=== PATIENT | male | born 1950 | race Caucasian/White ===

== ENCOUNTER 2016-12-21 07:37 | Emergency (ER) | payer OTHER ==
[~2016-12-21] VITALS: Ht 172.7 cm; Wt 96.0 kg
[2016-12-21 07:39] VITALS: Ht 172.7 cm; Wt 96.0 kg
--- NOTE | 2016-12-21 08:17 | ERA ---
ER Documentation Chief Complaint Date/Time DATE: 12/21/16 TIME: 08:09 Chief Complaint 9/10 lower back pain x 3 days HPI 66-year-old male with a chief complaint of worsening back pain 3 days. Patient states that he has chronic back pain, but his PCP is on vacation. Patient has a significant past medical history including a chronic history of difficulty urinating. Patient describes the back pain as sharp and extending to bilateral outer upper thighs. No pain below the knees. States that is more difficult to ambulate secondary to pain. Denies mechanism of injury, history of cancer, recent illness, unexplained weight loss, thoracic back pain, pain at rest, saddle parasthesia, incontinence, or pain exacerbated by valsalva, fever, or chills. Patient has no other complaints and describes no other associated manifestations. ROS All systems reviewed and are negative except as per history of present illness. Medications Home Meds Active Scripts Ibuprofen* (Motrin*) 400 Mg Tab, 400 MG PO Q6, #30 TAB Prov:SAMANTHA LYONS PA-C 12/21/16 Allergies Allergies: Coded Allergies: No Known Allergy (Unverified , 12/21/16) PMhx/Soc History of Surgery: Yes (spinal surgery) Anesthesia Reaction: No Hx Neurological Disorder: No Hx Respiratory Disorders: No Hx Cardiac Disorders: Yes (htn, high cholesterol) Hx Psychiatric Problems: No Hx Miscellaneous Medical Probl: Yes (dm,+hiv) Hx Alcohol Use: No Hx Substance Use: No Hx Tobacco Use: No Smoking Status: Never smoker Physical Exam Vitals Vital Signs Date Time Temp Pulse Resp B/P Pulse Ox O2 Delivery O2 Flow Rate FiO2 12/21/16 07:39 98.0 77 18 159/78 98 Physical Exam Const: Morbidly obese 66-year-old male in a wheelchair on presentation. No acute distress. Head: Atraumatic Eyes: Normal Conjunctiva. No nystagmus. EOMI bilaterally. PERRLA. ENT: Normal External Ears, Nose and Mouth. Neck: Full range of motion. Nontender.~ No meningismus. Resp: Clear to auscultation bilaterally Cardio: Regular rate and rhythm, no murmurs. Posterior tibial, dorsalis pedis and radial pulses 2+ bilaterally. Cap refill less than 2 seconds. Abd: Soft, non tender, non distended. Normal bowel sounds Skin: No petechiae or rashes Back: No midline or flank tenderness. Limited range of motion secondary to pain. Anal wink and rectal tone intact. Ext: No cyanosis, or edema. No paresthesia. Neur: Awake and alert. Altered ambulation secondary to pain. Neurovascularly intact bilaterally. Psych: Normal Mood and Affect Results 24 hrs Current Medications Medications (Trade) Dose Ordered Sig/Rashida Route PRN Reason Start Time Stop Time Status Last Admin Dose Admin Acetaminophen/ Hydrocodone Bitart (Reva (5/325)) 1 tab ONCE ONCE PO 12/21/16 08:30 12/21/16 09:04 DC 12/21/16 08:55 Ketorolac Tromethamine (Toradol) 15 mg ONCE STAT IM 12/21/16 09:03 12/21/16 09:04 DC 12/21/16 09:08 Procedures/MDM 66-year-old male presenting with back pain as described in history and physical examination. Physical examination was largely unremarkable. X-ray was obtained due to patient's age. X-ray was read by the radiologist given the following impression: 1. Grade 1 anterolisthesis of L4 on L5. 2. Posterior instrumented fusion of L5-S1 without evidence of hardware complication. Patient was given 5/325 Reva p.o for pain in the ED with adequate relief. Most likely diagnosis is back pain with sciatica along with radiographic findings. At this time I do not suspect cauda equina syndrome, spinal cord compression, aortic aneurysm, aortic dissection, epidural abscess, spinal hematoma, malignancy, kidney stones or pyelonephritis. Treatment will include ibuprofen outpatient instructions to follow-up with PCP for possible referral to a specialist. The results of the x-ray have been handed to the patient. I have spoke with the patient regarding their condition and future management. They have verbally responded that they understand their status and treatment plan. The patients vitals are stable, and their current condition is appropriate for discharge. The patient will be given discharge instructions with return precautions. Departure Diagnosis: Primary Impression: Back pain Qualified Code: M54.42 - Chronic bilateral low back pain with bilateral sciatica Additional Impression: Anterolisthesis Condition: Stable Additional Instructions: Follow up with your PCP within the next 1-3 days for a more thorough evaluation and a possible referral to a specialist. Return the the emergency department immediately if symptoms worsen or change. If you have any questions regarding medications, ask your pharmacist or us before you leave. If any adverse reactions occur while taking your medications, discontinue the treatment and return to the emergency department immediately. Take your medications as directed, and complete the entire course of treatment. SAMANTHA LYONS PA-C Dec 21, 2016 08:17
[2016-12-21] MEDS ORDERED: HYDROCODONE/APAP (5/325) TAB PO ONE (08:30)
[2016-12-21] MEDS ORDERED: KETOROLAC 15 MG INJ IM STA (09:03)
--- NOTE | 2016-12-21 09:12 | RADRPT ---
PROCEDURE: Lumbar spine radiograph. CLINICAL INDICATION: Chronic pain. COMPARISON: None relevant listed. TECHNIQUE: AP, lateral, and coned-down L5-S1 views. FINDINGS: Slight 1-2 mm anterolisthesis of L4 on L5. The usual lumbar lordosis is straightened. There are 5 non-rib bearing lumbar vertebral bodies. L5-S1 posterior instrumented fusion using rods and bilateral pedicle screws with intervening disc sp acer. No hardware fracture. No suspicious nichole-hardware lucency. No acute fracture. Vertebral body height is maintained. No suspicious bony lesion. Disc dessication and height loss L4-L5 with mild anterior endplate spurring. Mild anterior endplate spurring at L1-L2. IMPRESSION: 1. Grade 1 anterolisthesis of L4 on L5. 2. Posterior instrumented fusion of L5-S1 without evidence of hardware complication. RPTAT: PP Physician Cande Date Time Electronically viewed and signed by Physician Cande on 12/21/2016 09:12 /
[2016-12-21] MEDS ORDERED: IBUP400T22 PO (09:30)
[2016-12-21 09:41] VITALS: BP 154/72; PULSE 68; RESP 18; TEMP 98
== END 2016-12-21 09:41 | disposition home or self-care (01) ==
LOC: FTE 07:37
DX: M54.42 Lumbago with sciatica, left side (principal); M54.41 Lumbago with sciatica, right side; M43.16 Spondylolisthesis, lumbar region; I10 Essential (primary) hypertension; E11.9 Type 2 diabetes mellitus without complications
CPT/HCPCS: 72100; 96372; J1885; Z7502

== ENCOUNTER 2018-11-10 14:11 | Emergency (ER) | payer OTHER ==
[~2018-11-10] VITALS: Ht 165.1 cm; Wt 90.8 kg
[~2018-11-10 14:11] MED LIST: IBUP-1561 PO
[2018-11-10 14:16] VITALS: Ht 165.1 cm; Wt 90.8 kg
[2018-11-10] MEDS ORDERED: GABA100C14 PO (15:04)
--- NOTE | 2018-11-10 15:05 | ERD ---
ER Documentation Chief Complaint Chief Complaint HEADACHE AND FACIAL DROOPING X1MTH, CAME FR [facility] yesterday HPI 68-year-old male with a history of diabetes and hypertension run in by family for evaluation of left facial pain and drooping. About 1 month ago the patient was in [facility]. He started having symptoms there and went to the doctor to get evaluated. He was given multiple medications including carbamazepine and valacyclovir. He was also given 2 other medications I cannot recognize. He states that he did not complete all the medications as they were causing him to be drowsy. He does state that he finished the valacyclovir however. He was not evaluated for stroke there. His family recently went to pick him up to bring him back to [place] and thought they would bring him here for evaluation. He does have a follow-up with his primary care doctor in 2 days. Patient denies any focal weakness or numbness. He complains of sharp shooting pains in the left side of his face and back of his ear. No numbness associated with this. Denies any eye pain. ROS All systems reviewed and are negative except as per history of present illness. Medications Home Meds Active Scripts Gabapentin* (Gabapentin*) 100 Mg Capsule, 100 MG PO TID, #90 CAP Prov:JENNYFER ROQUE MD 11/10/18 Ibuprofen* (Motrin*) 400 Mg Tab, 400 MG PO Q6, #30 TAB Prov:SAMANTHA LYONS PA-C 12/21/16 Allergies Allergies: Coded Allergies: No Known Allergy (Unverified , 12/21/16) PMhx/Soc History of Surgery: Yes (spinal surgery) Anesthesia Reaction: No Hx Neurological Disorder: No Hx Respiratory Disorders: No Hx Cardiac Disorders: Yes (htn, high cholesterol) Hx Psychiatric Problems: Yes (L hip) Hx Miscellaneous Medical Probl: Yes (+HIV) Hx Alcohol Use: No Hx Substance Use: No Hx Tobacco Use: No Smoking Status: Never smoker FmHx Family History: diabetes Physical Exam Vitals Vital Signs Date Temp Pulse Resp B/P (MAP) Pulse Ox O2 O2 Flow FiO2 Time Delivery Rate 11/10/18 68 16 139/92 99 Room Air 16:18 (108) 11/10/18 97.9 90 18 170/95 97 14:16 (120) Physical Exam Const: No acute distress Head: Atraumatic Eyes: Normal Conjunctiva, PERRLA, EOMI ENT: Normal External Ears, Nose and Mouth. No vesicular lesions seen. External ear canal normal. TMs normal. Neck: Full range of motion. No meningismus. Resp: Clear to auscultation bilaterally Cardio: Regular rate and rhythm, no murmurs Abd: Soft, non tender, non distended. Normal bowel sounds Skin: No petechiae or rashes Neur: Awake and alert, oriented x3. left facial nerve palsy noted, however he is able to close the left eye completely. There is forehead involvement on the left. All other cranial nerves are intact. Strength and sensations intact in all 4 extremities. Normal gait. Psych: Normal Mood and Affect Result Diagram: 11/10/18 1546 11/10/18 1546 Results 24 hrs Laboratory Tests Test 11/10/18 15:04 11/10/18 15:46 11/10/18 15:50 Bedside Glucose 296 mg/dL White Blood Count 4.8 10^3/ul Red Blood Count 4.99 10^6/ul Hemoglobin 14.5 g/dl Hematocrit 42.6 % Mean Corpuscular Volume 85.4 fl Mean Corpuscular Hemoglobin 29.1 pg Mean Corpuscular 34.0 g/dl Hemoglobin Concent Red Cell Distribution Width 14.5 % Platelet Count 209 10^3/UL Mean Platelet Volume 10.6 fl Immature Granulocytes % 0.200 % Neutrophils % 63.8 % Lymphocytes % 28.2 % Monocytes % 6.8 % Eosinophils % 0.8 % Basophils % 0.2 % Nucleated Red Blood Cells % 0.0 /100WBC Immature Granulocytes # 0.010 10^3/ul Neutrophils # 3.1 10^3/ul Lymphocytes # 1.4 10^3/ul Monocytes # 0.3 10^3/ul Eosinophils # 0.0 10^3/ul Basophils # 0.0 10^3/ul Nucleated Red Blood Cells # 0.0 10^3/ul Sodium Level 137 mmol/L Potassium Level 4.9 mmol/L Chloride Level 102 mmol/L Carbon Dioxide Level 27 mmol/L Anion Gap 8 Blood Urea Nitrogen 14 mg/dl Creatinine 1.10 mg/dl Est Glomerular Filtrat > 60 mL/min Rate mL/min Glucose Level 289 mg/dl Calcium Level 8.9 mg/dl Urine Color YELLOW Urine Clarity CLEAR Urine pH 6.0 Urine Specific [place] 1.011 Urine Ketones NEGATIVE mg/dL Urine Nitrite NEGATIVE mg/dL Urine Bilirubin NEGATIVE mg/dL Urine Urobilinogen NEGATIVE mg/dL Urine Leukocyte Esterase NEGATIVE [place]/ul Urine Microscopic RBC 2 /HPF Urine Microscopic WBC 1 /HPF Urine Hemoglobin NEGATIVE mg/dL Urine Glucose 3+ mg/dL Urine Total Protein 2+ mg/dl Current Medications Medications Dose Sig/Rashida Start Time Status Last (Trade) Ordered Route PRN Stop Time Admin Dose Reason Admin Sodium 1,000 ml @ Q1H STAT 11/10/18 DC 11/10/18 Chloride 1,000 mls/hr IV 15:06 15:43 11/10/18 16:05 Procedures/MDM EMERGENT LABS AND DIAGNOSTIC STUDIES: Lab Results above were reviewed and interpreted by me. CBC: no anemia or evidence of infection BMP: Hyperglycemic. no e/o clinically significant electrolyte abnormality severe acidosis, alkalosis, renal failure, diabetic ketoacidosis 12-lead EKG was interpreted by Ana Roque MD: Normal Sinus Rhythm with ventricular rate of 73 beats per minute Normal axis Normal intervals No acute ST or T wave changes suggestive of acute ischemia or STEMI. Initial Nursing notes reviewed. Previous Medical Records requested via the Electronic Health Record. EMERGENCY DEPARTMENT COURSE / MEDICAL DECISION MAKING: Patient presents with left facial nerve VII palsy that has been going on for 1 month with associated facial pain. I do not suspect stroke or intracranial hemorrhage. He was hyperglycemic so basic labs were done and there is no evidence of DKA. He was treated with IV fluids. I recommended starting him on gabapentin for his neuropathy and recommended follow-up with primary care doctor for further management and work-up as needed. 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 Family agrees with discharge plan. Patient's blood pressure was elevated (>120/80) but appears stable without evidence of hypertensive emergency or urgency. The patient was counseled about t he risks of hypertension and urged to pursue outpatient monitoring and therapy within a week with their primary care physician. 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 JENNYFER ROQUE MD Nov 10, 2018 15:05
[2018-11-10] MEDS ORDERED: SOD CHLORIDE 0.9% 1,000 ML IV STA (15:06)
[2018-11-10 16:18] VITALS: BP 139/92; PULSE 68; RESP 16
== END 2018-11-10 16:35 | disposition home or self-care (01) ==
LOC: E/R 14:11
DX: G58.8 Other specified mononeuropathies (principal); G51.8 Other disorders of facial nerve; I10 Essential (primary) hypertension; B20 Human immunodeficiency virus [HIV] disease; E11.9 Type 2 diabetes mellitus without complications
CPT/HCPCS: 36415; 80048; 81001; 82962; 85025; 93005; J7030; Z7502